=== PATIENT | female | born 1960 | race Caucasian/White ===

== ENCOUNTER 2019-07-02 09:01 | Day surgery (SDC) | payer OTHER ==
[~2019-07-02] VITALS: Ht 165.1 cm; Wt 55.8 kg
[~2019-07-02 09:01] MED LIST: SYNTHROID100 MCG PO
--- NOTE | 2019-07-02 11:33 | NUR ---
07/02/19 1133 Beverley Shoemaker 1058 PT ARRIVED IN PACU SLEEPY. ABD SOFT. 1115 RESTING. AWAKENS TO VERBAL STIMULI AND FALLS BACK TO SLEEP. 1130 SITTING UP IN BED SIPPING ON WATER. NO C/O'S.
--- NOTE | 2019-07-02 16:58 | OR ---
[facility] [address], [place] [address] Signed DATE OF OPERATION: 07/02/2019 SURGEON: Keegan Pardo MD PREOPERATIVE DIAGNOSIS: Screening. POSTOPERATIVE DIAGNOSES: 1. Small external hemorrhoids. 2. Long redundant left colon. 3. Angulated splenic flexure. PROCEDURE: Colonoscopy without biopsy. ESTIMATED BLOOD LOSS: None. INDICATIONS: Janine is a 58-year-old female from [facility]. Both she and her have her master's degree in [employer]. They worked at our local [employer]. She came to the office for a followup colonoscopy. She had a negative screening colonoscopy back in 2008 while living in [place], [place]. She has no family history of colon cancer or polyps. There are no lower GI complaints. She did tell the nurses today she remembers having a long redundant left colon. In the office, I gave Janine a pamphlet on colonoscopy. We looked at that together in detail. She understands the nature of the test along with its risks including, but not limited to gas bloating, crampy abdominal pain, bleeding, perforation requiring surgery, and missed diagnosis. She also understands the need for IV conscious sedation. She had expressed understanding and wished to proceed. PROCEDURE NOTE: Janine was taken into the endoscopy suite and placed in the left lateral decubitus position. She was given a total of 9 mg of Versed and 150 mcg of fentanyl to cover the case. A digital rectal exam was performed and she has small external hemorrhoids. She has good sphincter tone. The adult colonoscope was introduced and advanced under direct visualization of camera. Indeed she does have a long redundant left colon. Fortunately, the camera went quite well until we got to the splenic flexure. She had liquid particulate stool matter in that area and it took actually several minutes to suction that out and work our way around the splenic flexure. We needed extra sedation Electronically Signed By: KEEGAN PARDO MD 07/02/19 1658 PATIENT NAME: JANINE VALENTIN OPERATIVE REPORT DATE OF : 58 REPORT #: [id number] PHYSICIAN: KEEGAN PARDO MD PCP: DORINA MERIDA PA-C REPORT IS CONFIDENTIAL AND NOT TO BE RELEASED WITHOUT AUTHORIZATION [facility] [address], [place] [address] Signed at that point, abdominal compression, and the scope went through the transverse colon, the hepatic flexure and down into the cecum itself fairly readily at that point. Fortunately, prep was good. The appendiceal orifice and ileocecal valve were easily visualized. We slowly withdrew the scope. We took pictures for photodocumentation. Again, she has angulation at the splenic flexure and then a long redundant left colon. We saw no polyps throughout the entire colon, no diverticula. The rectum was unremarkable. Upon retroflexion of the scope, she had just a tiny internal anal skin tag. After this, the gas was suctioned out and colonoscope removed. Janine tolerated the procedure quite well. RECOMMENDATIONS: Janine can follow up in 10 years for repeat colonoscopy. If she has a recall of this procedure, she should consider infusion of propofol. Keegan Pardo MD ALB/MODL /[id number] cc: Amy Parod MD Copies: KEEGAN PARDO MD ~ Electronically Signed By: KEEGAN PARDO MD 07/02/19 1658 PATIENT NAME: JANINE VALENTIN OPERATIVE REPORT DATE OF : 58 REPORT #: [id number] PHYSICIAN: KEEGAN PARDO MD PCP: DORINA MERIDA PA-C REPORT IS CONFIDENTIAL AND NOT TO BE RELEASED WITHOUT AUTHORIZATION
== END 2019-07-02 11:55 | disposition home or self-care (01) ==
LOC: OPS 09:01 → DS 09:01 → OPS 10:30 → DS 10:30 → OPS 11:55
PROVIDERS: Colon & Rectal Surgery
PROC: 0DJD8ZZ Inspection of Lower Intestinal Tract, Via Natural or Artificial Opening Endoscopic (ICD-10-PCS; principal; 2019-07-02 10:30)
DX: Z12.11 Encounter for screening for malignant neoplasm of colon (principal); K64.4 Residual hemorrhoidal skin tags; Q43.8 Other specified congenital malformations of intestine; K63.89 Other specified diseases of intestine; E03.9 Hypothyroidism, unspecified; Z79.899 Other long term (current) drug therapy
CPT/HCPCS: 99153; G0500; J2250; J3010; J7121